=== PATIENT | female | born 1995 | race Asian ===

== ENCOUNTER 2021-03-15 12:59 | Outpatient (CLI) | payer BC ==
--- NOTE | 2021-03-15 13:07 | XRAY Report ---
PROCEDURE: Hip w/Pelvis 2-3V LT INDICATIONS: HIP JOINT PAIN TECHNIQUE: AP pelvis with lateral view(s) of the left hip(s). COMPARISON: None. FINDINGS: Bones: No fractures or dislocations. Pelvic ring appears intact. No suspicious bony lesions. Soft tissues: The visualized bowel gas pattern is normal. No suspicious soft tissue calcifications. IMPRESSION: No visualized acute fracture or dislocation. However, occult injury cannot be excluded. Recommend short interval imaging follow-up in 7-10 days as clinically indicated for additional evalua tion. Reviewed by: Anay Johnson MD on 03/15/2021 1:05 PM PDT Approved by: Anay Johnson MD on 03/15/2021 1:05 PM PDT Station ID: [id number]
== END 2021-03-15 23:59 | disposition home or self-care (01) ==
LOC: DI.N 12:59
PROVIDERS: ATTEND Family Medicine
DX: M25.552 Pain in left hip (principal)